=== PATIENT | female | born 1940 | race African-American/Black ===

== ENCOUNTER 2017-06-29 11:34 | Inpatient (IN) ==
[2017-06-29] MEDS ORDERED: NITROGLYCERIN 2% OINT 1 INCH/GM PACK TOP STA (12:16)
[2017-06-29] MEDS ORDERED: FUROSEMIDE 100 MG/10 ML VIAL IV STA (12:16)
[2017-06-29] MEDS ORDERED: ONDANSETRON ODT 4 MG TABLET PO PRN (12:16)
[2017-06-29] MEDS ORDERED: FUROSEMIDE 100 MG/10 ML VIAL ONE (12:22)
[2017-06-29] MEDS ORDERED: NITROGLYCERIN 2% OINT 1 INCH/GM PACK TOP ONE (12:22)
[2017-06-29 12:29] LABS: Basophils % 0.7 % (0.0-0.8); Eosinophils # 0.1 10*3/uL (0.0-0.87); Hematocrit 32.6 VOL% (35.7-47.0); Hemoglobin 11.1 GM/DL (12.0-16.0); Immature Granulocytes % 0.2 %; Immature Granulocytes Absolute 0.01 #; Lymphocytes # 1.3 10*3/uL (1.4-4.0); Mean Corpuscular Hemoglobin 29 PG (27-34); Mean Corpuscular Volume 83.8 FL (87-102); Mean Platelet Volume 10.2 FL (9.6-12.0); Monocytes # 0.4 10*3/uL (0.11-0.8); Monocytes % 9.4 % (1.7-12.7); Neutrophils # 2.2 10*3/uL (1.4-7.4); Neutrophils % 54.7 % (38.7-73.9); Platelet Count 234 T/CUMM (130-400); Red Blood Count 3.89 MC/CUMM (3.8-5.5); Red Cell Distribution Width 15.7 % (9.3-17.3); White Blood Count 4.1 T/CUMM (4-12)
[2017-06-29 12:37] LABS: PT Patient Result 10.6 SECS; Partial Thromboplastin Time 29.4 SECS (0-40)
[2017-06-29 12:58] LABS: Albumin 3.5 G/DL (3.4-5.0); Bilirubin,Total 0.6 MG/DL (0.2-1.0); Calcium 9.2 MG/DL (8.5-10.1); Osmolality,Calculated 286.1 MOS/KG (273-304); Potassium 3.1 MMOL/L (3.5-5.1); Total Protein 7.1 G/DL (6.4-8.3); Troponin I Only 0.028 NG/ML (0.00-0.045)
[2017-06-29] MEDS ORDERED: hydrALAZINE 20 MG/1 ML VIAL IV STA ×2 (13:46→14:51)
[2017-06-29] MEDS ORDERED: hydrALAZINE 20 MG/1 ML VIAL ONE ×2 (13:54→14:50)
[2017-06-29 15:05] LABS: Apearance,Urine CLEAR (Clear); Bacteria,Urine Occasional /HPF (Few); Bilirubin,Urine Negative (Negative); Blood, Urine Negative (Negative); Glucose,Urine (UA) Negative (Negative); Ketones,Urine Negative (Negative); Mucus,Urine Occasional /LPF (Occasional); Nitrite,Urine Negative (Negative); Protein,Urine 100 MG/DL; RBC,Urine <1 /HPF (0-4); Squamous Epithelial Cell,Urine Occasional /HPF (0-10); Urine Color Straw (Yellow); Urine Specific Gravity 1.005 (1.001-1.035); Urine Urobilinogen < 2.0 EU/DL (0.2-1.0); WBC,Urine <1 /HPF (0-6)
[2017-06-29] MEDS ORDERED: INFLUENZA VIRUS VACCINE 0.5 ML SYRINGE IM ONE (16:47)
[2017-06-29] MEDS ORDERED: POTASSIUM CHLORIDE 20 MEQ TABLET PO ONE (17:33)
[2017-06-29] MEDS ORDERED: hydrALAZINE 20 MG/1 ML VIAL IV PRN (18:04)
[2017-06-29] MEDS ORDERED: LABETALOL 20 MG/4 ML SYRINGE IV PRN (18:54)
[2017-06-29] MEDS ORDERED: CARVEDILOL 12.5 MG TABLET PO SCH (21:00)
[2017-06-29] MEDS ORDERED: LISINOPRIL 10 MG TABLET PO SCH (21:00)
[2017-06-29] MEDS: CARVEDILOL 25 MG TABLET PO SCH (21:28)
[2017-06-29] MEDS: LISINOPRIL 20 MG TABLET PO SCH ×2 (21:28→21:33)
[2017-06-29] MEDS: ATORVASTATIN 40 MG TABLET PO SCH (21:29)
[2017-06-30 05:24] LABS: Basophils % 0.7 % (0.0-0.8); Eosinophils # 0.1 10*3/uL (0.0-0.87); Eosinophils % 1.5 % (0.00-10.9); Hematocrit 30.3 VOL% (35.7-47.0); Hemoglobin 10.3 GM/DL (12.0-16.0); Immature Granulocytes % 0.2 %; Immature Granulocytes Absolute 0.01 #; Lymphocytes # 0.6 10*3/uL (1.4-4.0); Lymphocytes % 13.9 % (21.3-54.2); Mean Corpuscular Hemoglobin 29 PG (27-34); Mean Corpuscular Volume 83.7 FL (87-102); Mean Platelet Volume 10.4 FL (9.6-12.0); Monocytes # 0.3 10*3/uL (0.11-0.8); Monocytes % 7.9 % (1.7-12.7); Neutrophils # 3.1 10*3/uL (1.4-7.4); Neutrophils % 75.8 % (38.7-73.9); Platelet Count 212 T/CUMM (130-400); Red Blood Count 3.62 MC/CUMM (3.8-5.5); Red Cell Distribution Width 15.8 % (9.3-17.3)
[2017-06-30 05:52] LABS: Calcium 9.1 MG/DL (8.5-10.1); Magnesium 2.2 MG/DL (1.8-2.4); Potassium 3.8 MMOL/L (3.5-5.1)
[2017-06-30 05:54] LABS: Risk Ratio 4.5; VLDL CHOLESTEROL 17.4 MG/DL
[2017-06-30] MEDS ORDERED: FUROSEMIDE 40 MG/4 ML VIAL IV SCH (08:00)
[2017-06-30] MEDS ORDERED: POTASSIUM CHLORIDE 20 MEQ TABLET PO SCH (09:00)
[2017-06-30] MEDS: CARVEDILOL 25 MG TABLET PO SCH ×2 (09:12→20:13)
[2017-06-30] MEDS: ASPIRIN EC 81 MG TABLET PO SCH (09:13)
[2017-06-30] MEDS: LISINOPRIL 20 MG TABLET PO SCH (09:20)
[2017-06-30 09:33] LABS: Free T4 (Free Thyroxine) 1.12 NG/DL (0.76-1.46); Thyroid Stimulating Hormone 1.47 uIU/ml (0.358-3.74)
[2017-06-30] MEDS: ISOSORBIDE MONONITRATE 30 MG TABLET PO SCH (15:42)
[2017-06-30 15:49] LABS: Troponin I Only 0.022 NG/ML (0.00-0.045)
[2017-06-30 18:43] LABS: Troponin I Only 0.019 NG/ML (0.00-0.045)
[2017-06-30] MEDS: SERTRALINE 50 MG TABLET PO SCH (20:12)
[2017-06-30] MEDS: ATORVASTATIN 40 MG TABLET PO SCH (20:13)
[2017-06-30 21:27] LABS: Troponin I Only 0.016 NG/ML (0.00-0.045)
[2017-07-01 05:08] LABS: Basophils % 0.5 % (0.0-0.8); Eosinophils # 0.1 10*3/uL (0.0-0.87); Eosinophils % 2.7 % (0.00-10.9); Hematocrit 28.2 VOL% (35.7-47.0); Hemoglobin 9.3 GM/DL (12.0-16.0); Lymphocytes % 24.8 % (21.3-54.2); Mean Corpuscular Hemoglobin 28 PG (27-34); Mean Corpuscular Volume 85.5 FL (87-102); Mean Platelet Volume 10.9 FL (9.6-12.0); Monocytes # 0.5 10*3/uL (0.11-0.8); Monocytes % 12.4 % (1.7-12.7); Neutrophils # 2.5 10*3/uL (1.4-7.4); Neutrophils % 59.6 % (38.7-73.9); Platelet Count 198 T/CUMM (130-400); Red Cell Distribution Width 15.4 % (9.3-17.3); White Blood Count 4.1 T/CUMM (4-12)
[2017-07-01 05:33] LABS: Calcium 8.7 MG/DL (8.5-10.1); Magnesium 2.4 MG/DL (1.8-2.4); Osmolality,Calculated 292.1 MOS/KG (273-304); Potassium 4.4 MMOL/L (3.5-5.1)
[2017-07-01 05:50] LABS: Free T4 (Free Thyroxine) 1.06 NG/DL (0.76-1.46); Thyroid Stimulating Hormone 1.01 uIU/ml (0.358-3.74)
[2017-07-01] MEDS ORDERED: LISINOPRIL 5 MG TABLET PO SCH (09:00)
[2017-07-01] MEDS: ISOSORBIDE MONONITRATE 30 MG TABLET PO SCH (09:41)
[2017-07-01] MEDS: ASPIRIN EC 81 MG TABLET PO SCH (09:42)
[2017-07-01] MEDS: CARVEDILOL 25 MG TABLET PO SCH ×2 (09:42→20:47)
[2017-07-01] MEDS: amLODIPine 10 MG TABLET PO SCH (12:25)
[2017-07-01] MEDS: DEXTROSE 5% NACL 0.45% 1,000 ML IV SCH (15:36)
[2017-07-01] MEDS: ATORVASTATIN 40 MG TABLET PO SCH (20:47)
[2017-07-01] MEDS: hydrALAZINE 25 MG TABLET PO SCH (20:47)
[2017-07-01] MEDS: SERTRALINE 50 MG TABLET PO SCH (20:48)
[2017-07-02 06:02] LABS: Basophils % 0.6 % (0.0-0.8); Eosinophils # 0.1 10*3/uL (0.0-0.87); Eosinophils % 3.5 % (0.00-10.9); Hematocrit 26.9 VOL% (35.7-47.0); Hemoglobin 8.9 GM/DL (12.0-16.0); Immature Granulocytes % 0.3 %; Immature Granulocytes Absolute 0.01 #; Lymphocytes % 31.2 % (21.3-54.2); Mean Corpuscular HGB Conc 33.1 GM/DL (32-36); Mean Corpuscular Hemoglobin 28 PG (27-34); Mean Corpuscular Volume 85.1 FL (87-102); Mean Platelet Volume 10.9 FL (9.6-12.0); Monocytes # 0.4 10*3/uL (0.11-0.8); Monocytes % 13.2 % (1.7-12.7); Neutrophils # 1.6 10*3/uL (1.4-7.4); Neutrophils % 51.2 % (38.7-73.9); Platelet Count 176 T/CUMM (130-400); Red Blood Count 3.16 MC/CUMM (3.8-5.5); Red Cell Distribution Width 15.2 % (9.3-17.3); White Blood Count 3.2 T/CUMM (4-12)
[2017-07-02 06:37] LABS: Calcium 8.5 MG/DL (8.5-10.1); Magnesium 2.4 MG/DL (1.8-2.4); Osmolality,Calculated 288.3 MOS/KG (273-304)
[2017-07-02] MEDS: amLODIPine 10 MG TABLET PO SCH (09:04)
[2017-07-02] MEDS: ISOSORBIDE MONONITRATE 30 MG TABLET PO SCH (09:04)
[2017-07-02] MEDS: CARVEDILOL 12.5 MG TABLET PO SCH ×2 (09:05→22:13)
[2017-07-02] MEDS: ASPIRIN EC 81 MG TABLET PO SCH (09:05)
[2017-07-02] MEDS: hydrALAZINE 25 MG TABLET PO SCH ×3 (09:05→22:13)
[2017-07-02] MEDS: NICOTINE 21 MG/24 HR PATCH TRANSDERM SCH (15:24)
[2017-07-02] MEDS: SERTRALINE 50 MG TABLET PO SCH (22:13)
[2017-07-02] MEDS: ATORVASTATIN 40 MG TABLET PO SCH (22:13)
[2017-07-03] MEDS: DEXTROSE 5% NACL 0.45% 1,000 ML IV SCH (01:30)
[2017-07-03 06:19] LABS: Basophils % 0.7 % (0.0-0.8); Eosinophils # 0.1 10*3/uL (0.0-0.87); Eosinophils % 3.7 % (0.00-10.9); Hematocrit 28.3 VOL% (35.7-47.0); Hemoglobin 9.5 GM/DL (12.0-16.0); Immature Granulocytes % 0.4 %; Immature Granulocytes Absolute 0.01 #; Lymphocytes # 0.8 10*3/uL (1.4-4.0); Lymphocytes % 29.2 % (21.3-54.2); Mean Corpuscular HGB Conc 33.6 GM/DL (32-36); Mean Corpuscular Hemoglobin 29 PG (27-34); Monocytes # 0.3 10*3/uL (0.11-0.8); Monocytes % 9.4 % (1.7-12.7); Neutrophils # 1.5 10*3/uL (1.4-7.4); Neutrophils % 56.6 % (38.7-73.9); Platelet Count 185 T/CUMM (130-400); Red Blood Count 3.33 MC/CUMM (3.8-5.5); White Blood Count 2.7 T/CUMM (4-12)
[2017-07-03 06:53] LABS: Calcium 8.8 MG/DL (8.5-10.1); Magnesium 2.4 MG/DL (1.8-2.4); Osmolality,Calculated 285.4 MOS/KG (273-304); Potassium 4.1 MMOL/L (3.5-5.1)
[2017-07-03] MEDS: CARVEDILOL 12.5 MG TABLET PO SCH (08:47)
[2017-07-03] MEDS: amLODIPine 10 MG TABLET PO SCH (08:47)
[2017-07-03] MEDS: ISOSORBIDE MONONITRATE 30 MG TABLET PO SCH (08:47)
[2017-07-03] MEDS: NICOTINE 21 MG/24 HR PATCH TRANSDERM SCH (08:47)
[2017-07-03] MEDS: ASPIRIN EC 81 MG TABLET PO SCH (08:47)
[2017-07-03] MEDS: hydrALAZINE 25 MG TABLET PO SCH (08:48)
[2017-07-03 11:29] VITALS: BP 141/68
== END 2017-07-03 13:15 | disposition home or self-care (01) | DRG 291 ==
LOC: N.ED 11:34 → N.EDINP 14:11 → N.TELEN 15:47
PROVIDERS: ADMIT Hospitalist; ATTEND Hospitalist

== ENCOUNTER 2022-03-03 10:44 | Observation (INO) ==
[2022-03-03] MEDS ORDERED: SODIUM CHLORIDE 0.9% 500 ML IV STA (11:02)
[2022-03-03 11:49] LABS: Basophils % 0.4 % (0.0-0.8); Eosinophils % 1.6 % (0.00-10.9); Hematocrit 23.8 VOL% (35.7-47.0); Hemoglobin 7.8 GM/DL (12.0-16.0); Immature Granulocytes % 0.4 %; Immature Granulocytes Absolute 0.01 #; Lymphocytes # 0.5 10*3/uL (1.4-4.0); Lymphocytes % 17.8 % (21.3-54.2); Mean Corpuscular HGB Conc 32.8 GM/DL (32-36); Mean Corpuscular Volume 86.5 FL (87-102); Mean Platelet Volume 10.8 FL (9.6-12.0); Monocytes # 0.2 10*3/uL (0.11-0.8); Monocytes % 7.8 % (1.7-12.7); Platelet Count 142 T/CUMM (130-400); Red Blood Count 2.75 MC/CUMM (3.8-5.5); Red Cell Distribution Width 16.9 % (9.3-17.3); White Blood Count 2.6 T/CUMM (4-12)
[2022-03-03 11:57] LABS: PT Patient Result 10.9 SECS (10.5-12.0)
[2022-03-03 12:07] LABS: Albumin 3.6 G/DL (3.4-5.0); Bilirubin,Total 0.4 MG/DL (0.20-1.00); Calcium 8.4 MG/DL (8.5-10.1); Osmolality,Calculated 305.8 MOS/KG (273-304); Potassium 4.1 MMOL/L (3.5-5.1); Total Protein 6.4 G/DL (6.4-8.2)
[2022-03-03] MEDS ORDERED: SODIUM CHLORIDE 0.9% 1,000 ML IV PRN (12:55)
[2022-03-03] MEDS ORDERED: ACETAMINOPHEN 325 MG TABLET PO PRN (12:55)
[2022-03-03] MEDS ORDERED: ONDANSETRON 4 MG/2 ML VIAL IV PRN (12:55)
[2022-03-03] MEDS ORDERED: DEXTROSE 10% 250 ML BAG IV PRN (12:55)
[2022-03-03] MEDS ORDERED: NICOTINE 21 MG/24 HR PATCH TRANSDERM PRN (12:55)
[2022-03-03] MEDS ORDERED: DOCUSATE SODIUM 100 MG CAPSULE PO PRN (12:55)
[2022-03-03] MEDS ORDERED: GLUCAGON 1 MG VIAL IM PRN (12:55)
[2022-03-03 14:29] LABS: % Iron Saturation 24.1 % (18-50)
[2022-03-03] MEDS: PANTOPRAZOLE 40 MG TABLET PO SCH (17:23)
[2022-03-03 20:48] LABS: Hematocrit 25.1 VOL% (35.7-47.0); Hemoglobin 8.2 GM/DL (12.0-16.0)
[2022-03-03] MEDS ORDERED: carvediloL 25 MG TABLET PO SCH (21:00)
[2022-03-03] MEDS ORDERED: ATORVASTATIN 80 MG TABLET PO SCH (21:00)
[2022-03-04 06:12] LABS: Basophils % 0.8 % (0.0-0.8); Eosinophils # 0.1 10*3/uL (0.0-0.87); Eosinophils % 1.9 % (0.00-10.9); Hematocrit 23.7 VOL% (35.7-47.0); Hemoglobin 7.7 GM/DL (12.0-16.0); Immature Granulocytes % 0.4 %; Immature Granulocytes Absolute 0.01 #; Lymphocytes # 0.6 10*3/uL (1.4-4.0); Lymphocytes % 24.8 % (21.3-54.2); Mean Corpuscular HGB Conc 32.5 GM/DL (32-36); Mean Corpuscular Volume 87.5 FL (87-102); Mean Platelet Volume 10.8 FL (9.6-12.0); Monocytes # 0.3 10*3/uL (0.11-0.8); Neutrophils % 60.1 % (38.7-73.9); Platelet Count 108 T/CUMM (130-400); Red Blood Count 2.71 MC/CUMM (3.8-5.5); Red Cell Distribution Width 16.6 % (9.3-17.3); White Blood Count 2.6 T/CUMM (4-12)
[2022-03-04 06:23] LABS: Calcium 8.5 MG/DL (8.5-10.1); Potassium 3.5 MMOL/L (3.5-5.1)
[2022-03-04] MEDS ORDERED: carvediloL 25 MG TABLET PO SCH (08:00)
[2022-03-04] MEDS: PANTOPRAZOLE 40 MG TABLET PO SCH (08:43)
[2022-03-04] MEDS ORDERED: SODIUM BICARBONATE 50 MEQ/50 ML VIAL IV ONE (08:58)
[2022-03-04] MEDS ORDERED: MULTIVITAMIN (CENTRUM) TABLET PO SCH (09:00)
[2022-03-04] MEDS ORDERED: ASPIRIN EC 81 MG TABLET PO SCH (09:00)
[2022-03-04] MEDS ORDERED: POTASSIUM CHLORIDE 20 MEQ TABLET PO ONE (09:00)
[2022-03-04] MEDS ORDERED: CYANOCOBALAMIN 500 MCG TABLET PO SCH (09:00)
[2022-03-04] MEDS ORDERED: SODIUM BICARB INJ 50 MEQ in IV BAG 1 EACH IV ONE (09:30)
[2022-03-04 11:35] VITALS: BP 145/43
== END 2022-03-04 12:23 | disposition home or self-care (01) ==
LOC: N.EDINP 10:44 → N.ED 10:44 → SUATTDRO 14:27 → N.3E 17:21
PROVIDERS: ADMIT Family Medicine; ATTEND Family Medicine

== ENCOUNTER 2022-06-16 15:49 | Inpatient (IN) ==
[2022-06-16 16:22] LABS: Basophils % 0.5 % (0.0-0.8); Eosinophils % 0.5 % (0.00-10.9); Hematocrit 29.7 VOL% (35.7-47.0); Hemoglobin 9.7 GM/DL (12.0-16.0); Immature Granulocytes % 0.3 %; Immature Granulocytes Absolute 0.01 #; Lymphocytes # 0.4 10*3/uL (1.4-4.0); Lymphocytes % 9.9 % (21.3-54.2); Mean Corpuscular HGB Conc 32.7 GM/DL (32-36); Mean Corpuscular Volume 84.4 FL (87-102); Monocytes # 0.2 10*3/uL (0.11-0.8); Monocytes % 4.6 % (1.7-12.7); Neutrophils % 84.2 % (38.7-73.9); Platelet Count 231 T/CUMM (130-400); Red Blood Count 3.52 MC/CUMM (3.8-5.5); Red Cell Distribution Width 16.3 % (9.3-17.3)
[2022-06-16] MEDS ORDERED: FUROSEMIDE 40 MG/4 ML VIAL IV STA (16:38)
[2022-06-16] MEDS ORDERED: NITROGLYCERIN 2% OINT 1 INCH/GM PACK TOP STA (16:39)
[2022-06-16 16:48] LABS: Albumin 3.3 G/DL (3.4-5.0); Bilirubin,Total 0.5 MG/DL (0.20-1.00); Calcium 8.9 MG/DL (8.5-10.1); Osmolality,Calculated 318.7 MOS/KG (273-304); Potassium 3.6 MMOL/L (3.5-5.1); Total Protein 6.3 G/DL (6.4-8.2)
[2022-06-16] MEDS ORDERED: DILTIAZEM 25 MG/5 ML VIAL IV ONE (17:34)
[2022-06-16] MEDS ORDERED: ONDANSETRON 4 MG/2 ML VIAL IV STA (17:42)
[2022-06-16] MEDS ORDERED: HYDROmorphone 1 MG/1 ML SYRINGE IV STA (17:42)
[2022-06-16] MEDS ORDERED: ALBUTEROL 2.5 MG/3 ML NEB RESP TX PRN (17:47)
[2022-06-16] MEDS ORDERED: DILTIAZEM 50 MG/10 ML VIAL IV STA (17:47)
[2022-06-16] MEDS ORDERED: ALUMINUM/MAGNES/SIMETH MAX STR 30 ML UDCUP PO PRN (17:47)
[2022-06-16] MEDS ORDERED: CALCIUM CARBONATE CHEW 500 MG TABLET PO PRN (17:47)
[2022-06-16] MEDS ORDERED: hydrALAZINE 20 MG/1 ML VIAL IV PRN (17:47)
[2022-06-16] MEDS ORDERED: LACTULOSE 20 GM/30 ML UDCUP PO PRN (17:47)
[2022-06-16] MEDS ORDERED: NALOXONE 0.4 MG/ML VIAL IV PRN (18:06)
[2022-06-16] MEDS ORDERED: HYDROmorphone 1 MG/1 ML SYRINGE IV PRN (18:06)
[2022-06-16] MEDS: ATORVASTATIN 80 MG TABLET PO SCH (22:45)
[2022-06-16] MEDS: carvediloL 25 MG TABLET PO SCH (22:45)
[2022-06-16] MEDS: SERTRALINE 25 MG TABLET PO SCH (22:45)
[2022-06-17 05:06] LABS: Basophils % 0.3 % (0.0-0.8); Hemoglobin 6.7 GM/DL (12.0-16.0); Immature Granulocytes % 0.3 %; Immature Granulocytes Absolute 0.01 #; Lymphocytes # 0.4 10*3/uL (1.4-4.0); Lymphocytes % 13.2 % (21.3-54.2); Mean Corpuscular HGB Conc 31.9 GM/DL (32-36); Mean Corpuscular Volume 85.7 FL (87-102); Mean Platelet Volume 10.1 FL (9.6-12.0); Monocytes # 0.2 10*3/uL (0.11-0.8); Monocytes % 6.3 % (1.7-12.7); Neutrophils % 79.9 % (38.7-73.9); Platelet Count 155 T/CUMM (130-400); Red Blood Count 2.45 MC/CUMM (3.8-5.5); Red Cell Distribution Width 16.2 % (9.3-17.3)
[2022-06-17 05:35] LABS: Calcium 8.6 MG/DL (8.5-10.1); Osmolality,Calculated 320.7 MOS/KG (273-304); Potassium 3.6 MMOL/L (3.5-5.1); Risk Ratio 4.53; Thyroid Stimulating Hormone 2.44 uIU/ml (0.358-3.74); VLDL Cholesterol 22.2 MG/DL
[2022-06-17 06:13] LABS: Hepatitis B Core IgM Quant 0.13 Index; Hepatitis B Surface Ag Quant < 0.10 Index; Hepatitis B Surface Ag Result Non-Reactive (NonReactive); Hepatitis C Virus Ab Quant 0.09 Index; Hepatitis C Virus Ab Result Non-Reactive (NonReactive)
[2022-06-17] MEDS ORDERED: SODIUM CHLORIDE 0.9% 1,000 ML IV PRN (07:48)
[2022-06-17] MEDS: FUROSEMIDE 40 MG/4 ML VIAL IV SCH ×2 (12:06→16:19)
[2022-06-17] MEDS: carvediloL 25 MG TABLET PO SCH (12:06)
[2022-06-17] MEDS ORDERED: HEPARIN 10,000 UNIT/10 ML VIAL IV SCH (14:30)
[2022-06-17] MEDS: ACETAMINOPHEN 325 MG TABLET PO PRN (17:30)
[2022-06-17] MEDS: ATORVASTATIN 80 MG TABLET PO SCH (22:59)
[2022-06-17] MEDS: carvediloL 6.25 MG TABLET PO SCH (22:59)
[2022-06-17] MEDS: SERTRALINE 25 MG TABLET PO SCH (22:59)
[2022-06-18 05:19] LABS: Basophils % 0.4 % (0.0-0.8); Eosinophils # 0.1 10*3/uL (0.0-0.87); Eosinophils % 0.9 % (0.00-10.9); Hemoglobin 8.1 GM/DL (12.0-16.0); Immature Granulocytes % 0.6 %; Immature Granulocytes Absolute 0.03 #; Lymphocytes # 0.5 10*3/uL (1.4-4.0); Lymphocytes % 9.1 % (21.3-54.2); Mean Corpuscular HGB Conc 33.8 GM/DL (32-36); Mean Corpuscular Volume 83.6 FL (87-102); Mean Platelet Volume 10.6 FL (9.6-12.0); Monocytes # 0.4 10*3/uL (0.11-0.8); Monocytes % 7.2 % (1.7-12.7); Neutrophils % 81.8 % (38.7-73.9); Platelet Count 177 T/CUMM (130-400); Red Blood Count 2.87 MC/CUMM (3.8-5.5); Red Cell Distribution Width 15.8 % (9.3-17.3); White Blood Count 5.4 T/CUMM (4-12)
[2022-06-18 05:27] LABS: Calcium 8.4 MG/DL (8.5-10.1); Potassium 3.3 MMOL/L (3.5-5.1)
[2022-06-18] MEDS ORDERED: POTASSIUM CHLORIDE 20 MEQ TABLET PO ONE (07:55)
[2022-06-18] MEDS: ONDANSETRON 4 MG/2 ML VIAL IV PRN (08:16)
[2022-06-18] MEDS: FUROSEMIDE 40 MG/4 ML VIAL IV SCH (08:26)
[2022-06-18] MEDS ORDERED: MAGNESIUM HYDROXIDE SUSP 30 ML UDCUP PO ONE (13:00)
[2022-06-18] MEDS: DOCUSATE SODIUM 100 MG CAPSULE PO PRN (13:46)
[2022-06-18] MEDS: ASPIRIN EC 81 MG TABLET PO SCH (13:47)
[2022-06-18] MEDS: carvediloL 6.25 MG TABLET PO SCH ×2 (13:47→20:32)
[2022-06-18] MEDS: FUROSEMIDE 40 MG TABLET PO SCH (17:05)
[2022-06-18] MEDS: ACETAMINOPHEN 325 MG TABLET PO PRN (19:23)
[2022-06-18] MEDS: SERTRALINE 25 MG TABLET PO SCH (20:32)
[2022-06-18] MEDS: ATORVASTATIN 80 MG TABLET PO SCH (20:32)
[2022-06-19] MEDS: ASPIRIN EC 81 MG TABLET PO SCH (08:09)
[2022-06-19] MEDS: carvediloL 6.25 MG TABLET PO SCH ×3 (08:09→23:41)
[2022-06-19] MEDS: FUROSEMIDE 40 MG TABLET PO SCH ×2 (08:10→15:57)
[2022-06-19 10:16] LABS: Basophils % 0.4 % (0.0-0.8); Eosinophils % 0.6 % (0.00-10.9); Hematocrit 26.4 VOL% (35.7-47.0); Hemoglobin 8.6 GM/DL (12.0-16.0); Immature Granulocytes % 0.2 %; Immature Granulocytes Absolute 0.01 #; Lymphocytes # 0.4 10*3/uL (1.4-4.0); Lymphocytes % 7.8 % (21.3-54.2); Mean Corpuscular HGB Conc 32.6 GM/DL (32-36); Mean Corpuscular Volume 85.2 FL (87-102); Mean Platelet Volume 10.7 FL (9.6-12.0); Monocytes # 0.5 10*3/uL (0.11-0.8); Monocytes % 10.2 % (1.7-12.7); Neutrophils % 80.8 % (38.7-73.9); Platelet Count 172 T/CUMM (130-400); White Blood Count 5.1 T/CUMM (4-12)
[2022-06-19 10:46] LABS: Albumin 2.8 G/DL (3.4-5.0); Bilirubin,Total 0.4 MG/DL (0.20-1.00); Calcium 8.4 MG/DL (8.5-10.1); Osmolality,Calculated 280.4 MOS/KG (273-304); Potassium 3.2 MMOL/L (3.5-5.1); Total Protein 5.8 G/DL (6.4-8.2)
[2022-06-19 11:01] LABS: Calcium 8.2 MG/DL (8.5-10.1); Osmolality,Calculated 282.3 MOS/KG (273-304); Potassium 3.2 MMOL/L (3.5-5.1)
[2022-06-19] MEDS: ONDANSETRON 4 MG/2 ML VIAL IV PRN ×2 (12:13→20:45)
[2022-06-19] MEDS ORDERED: POTASSIUM CHLORIDE 20 MEQ TABLET PO ONE (12:37)
[2022-06-19] MEDS: cefTRIAXone 1,000 MG in SODIUM CHLORIDE 0.9% 100 ML IV SCH (13:06)
[2022-06-19] MEDS: ATORVASTATIN 80 MG TABLET PO SCH ×2 (20:41→23:41)
[2022-06-19] MEDS: SERTRALINE 25 MG TABLET PO SCH ×2 (20:42→23:41)
[2022-06-20 04:18] LABS: Basophils % 0.7 % (0.0-0.8); Eosinophils # 0.1 10*3/uL (0.0-0.87); Eosinophils % 1.6 % (0.00-10.9); Hematocrit 25.8 VOL% (35.7-47.0); Hemoglobin 8.3 GM/DL (12.0-16.0); Immature Granulocytes % 0.2 %; Immature Granulocytes Absolute 0.01 #; Lymphocytes # 0.6 10*3/uL (1.4-4.0); Lymphocytes % 14.4 % (21.3-54.2); Mean Corpuscular HGB Conc 32.2 GM/DL (32-36); Mean Corpuscular Volume 86.9 FL (87-102); Mean Platelet Volume 10.9 FL (9.6-12.0); Monocytes # 0.5 10*3/uL (0.11-0.8); Monocytes % 12.3 % (1.7-12.7); Neutrophils % 70.8 % (38.7-73.9); Platelet Count 166 T/CUMM (130-400); Red Blood Count 2.97 MC/CUMM (3.8-5.5); Red Cell Distribution Width 16.2 % (9.3-17.3); White Blood Count 4.3 T/CUMM (4-12)
[2022-06-20 05:03] LABS: Calcium 8.2 MG/DL (8.5-10.1); Osmolality,Calculated 282.3 MOS/KG (273-304); Potassium 3.8 MMOL/L (3.5-5.1)
[2022-06-20 05:06] LABS: Albumin 2.8 G/DL (3.4-5.0); Bilirubin,Total 0.4 MG/DL (0.20-1.00); Calcium 8.3 MG/DL (8.5-10.1); Osmolality,Calculated 288.8 MOS/KG (273-304); Total Protein 5.2 G/DL (6.4-8.2)
[2022-06-20] MEDS: DOCUSATE SODIUM 100 MG CAPSULE PO PRN (09:18)
[2022-06-20] MEDS: ASPIRIN EC 81 MG TABLET PO SCH (09:19)
[2022-06-20] MEDS: FUROSEMIDE 40 MG TABLET PO SCH ×2 (09:20→15:53)
[2022-06-20] MEDS: carvediloL 6.25 MG TABLET PO SCH ×2 (09:21→22:00)
[2022-06-20] MEDS: cefTRIAXone 1,000 MG in SODIUM CHLORIDE 0.9% 100 ML IV SCH (10:54)
[2022-06-20] MEDS: ACETAMINOPHEN 325 MG TABLET PO PRN (15:53)
[2022-06-20] MEDS: SERTRALINE 25 MG TABLET PO SCH (22:00)
[2022-06-20] MEDS: ATORVASTATIN 80 MG TABLET PO SCH (22:00)
[2022-06-21 04:55] LABS: Basophils % 0.5 % (0.0-0.8); Eosinophils # 0.1 10*3/uL (0.0-0.87); Eosinophils % 3.2 % (0.00-10.9); Hematocrit 28.4 VOL% (35.7-47.0); Hemoglobin 8.8 GM/DL (12.0-16.0); Immature Granulocytes % 0.5 %; Immature Granulocytes Absolute 0.02 #; Lymphocytes # 0.5 10*3/uL (1.4-4.0); Lymphocytes % 13.7 % (21.3-54.2); Mean Corpuscular Volume 88.2 FL (87-102); Mean Platelet Volume 10.8 FL (9.6-12.0); Monocytes # 0.4 10*3/uL (0.11-0.8); Monocytes % 11.3 % (1.7-12.7); Neutrophils % 70.8 % (38.7-73.9); Platelet Count 169 T/CUMM (130-400); Red Blood Count 3.22 MC/CUMM (3.8-5.5); Red Cell Distribution Width 16.2 % (9.3-17.3); White Blood Count 3.8 T/CUMM (4-12)
[2022-06-21 05:19] LABS: Calcium 8.3 MG/DL (8.5-10.1); Potassium 3.9 MMOL/L (3.5-5.1)
[2022-06-21 07:50] LABS: Eosinophils 1 % (0-10); Hypochromia Slight; Lymphocytes 13 % (20-55); Microcytosis Slight; Platelet Estimate Adequate; Total Cells Counted 100
[2022-06-21] MEDS: FUROSEMIDE 40 MG TABLET PO SCH ×2 (09:55→17:10)
[2022-06-21] MEDS: ASPIRIN EC 81 MG TABLET PO SCH (14:15)
[2022-06-21] MEDS: carvediloL 6.25 MG TABLET PO SCH ×2 (14:15→20:50)
[2022-06-21] MEDS: cefTRIAXone 1,000 MG in SODIUM CHLORIDE 0.9% 100 ML IV SCH (14:16)
[2022-06-21] MEDS: SERTRALINE 25 MG TABLET PO SCH (20:50)
[2022-06-21] MEDS: ATORVASTATIN 80 MG TABLET PO SCH (20:50)
[2022-06-22 05:03] LABS: Basophils % 0.8 % (0.0-0.8); Eosinophils # 0.1 10*3/uL (0.0-0.87); Eosinophils % 2.9 % (0.00-10.9); Hematocrit 28.7 VOL% (35.7-47.0); Hemoglobin 9.1 GM/DL (12.0-16.0); Lymphocytes # 0.5 10*3/uL (1.4-4.0); Lymphocytes % 14.5 % (21.3-54.2); Mean Corpuscular HGB Conc 31.7 GM/DL (32-36); Mean Corpuscular Volume 87.5 FL (87-102); Mean Platelet Volume 10.6 FL (9.6-12.0); Monocytes # 0.4 10*3/uL (0.11-0.8); Monocytes % 11.8 % (1.7-12.7); Platelet Count 167 T/CUMM (130-400); Red Blood Count 3.28 MC/CUMM (3.8-5.5); White Blood Count 3.7 T/CUMM (4-12)
[2022-06-22 05:40] LABS: Calcium 8.7 MG/DL (8.5-10.1); Osmolality,Calculated 284.4 MOS/KG (273-304); Potassium 3.7 MMOL/L (3.5-5.1)
[2022-06-22] MEDS ORDERED: BUPIVACAINE MPF 0.25% 10 ML VIAL ONE (06:27)
[2022-06-22] MEDS ORDERED: LIDOCAINE MPF 1% /EPI 30 ML VIAL ONE (06:27)
[2022-06-22] MEDS ORDERED: HEPARIN 5,000 UNIT/1 ML VIAL ONE (06:27)
[2022-06-22] MEDS ORDERED: fentaNYL 100 MCG/2 ML VIAL ONE (06:33)
[2022-06-22] MEDS ORDERED: KETAMINE 500 MG/10 ML VIAL ONE (06:33)
[2022-06-22] MEDS ORDERED: MIDAZOLAM 2 MG/2 ML VIAL ONE (06:33)
[2022-06-22] MEDS: FUROSEMIDE 40 MG TABLET PO SCH ×2 (09:17→15:57)
[2022-06-22] MEDS: carvediloL 6.25 MG TABLET PO SCH ×2 (09:17→20:38)
[2022-06-22] MEDS: ASPIRIN EC 81 MG TABLET PO SCH (09:17)
[2022-06-22] MEDS: cefTRIAXone 1,000 MG in SODIUM CHLORIDE 0.9% 100 ML IV SCH (10:14)
[2022-06-22] MEDS: ONDANSETRON 4 MG/2 ML VIAL IV PRN (17:25)
[2022-06-22] MEDS: ATORVASTATIN 80 MG TABLET PO SCH (20:38)
[2022-06-22] MEDS: SERTRALINE 25 MG TABLET PO SCH (20:38)
[2022-06-22] MEDS: ACETAMINOPHEN 325 MG TABLET PO PRN (20:39)
[2022-06-23 04:48] LABS: Eosinophils # 0.2 10*3/uL (0.0-0.87); Eosinophils % 3.9 % (0.00-10.9); Hematocrit 27.5 VOL% (35.7-47.0); Hemoglobin 8.6 GM/DL (12.0-16.0); Immature Granulocytes % 0.5 %; Immature Granulocytes Absolute 0.02 #; Lymphocytes # 0.6 10*3/uL (1.4-4.0); Lymphocytes % 16.3 % (21.3-54.2); Mean Corpuscular HGB Conc 31.3 GM/DL (32-36); Mean Corpuscular Volume 88.4 FL (87-102); Mean Platelet Volume 10.5 FL (9.6-12.0); Monocytes # 0.5 10*3/uL (0.11-0.8); Monocytes % 13.6 % (1.7-12.7); Neutrophils % 64.7 % (38.7-73.9); Platelet Count 149 T/CUMM (130-400); Red Blood Count 3.11 MC/CUMM (3.8-5.5); White Blood Count 3.8 T/CUMM (4-12)
[2022-06-23 05:07] LABS: Calcium 8.6 MG/DL (8.5-10.1); Osmolality,Calculated 287.3 MOS/KG (273-304); Potassium 3.6 MMOL/L (3.5-5.1)
[2022-06-23] MEDS: ASPIRIN EC 81 MG TABLET PO SCH (09:40)
[2022-06-23] MEDS: FUROSEMIDE 40 MG TABLET PO SCH (09:41)
[2022-06-23] MEDS: carvediloL 6.25 MG TABLET PO SCH (13:30)
[2022-06-23 13:34] VITALS: BP 180/77
[2022-06-23] MEDS: cefTRIAXone 1,000 MG in SODIUM CHLORIDE 0.9% 100 ML IV SCH (16:37)
== END 2022-06-23 13:50 | disposition home health service (06) | DRG 291 ==
LOC: N.ED 15:49 → N.EDINP 17:42 → SUATTDRO 17:42 → N.5E 19:00 → N.TELES 19:19
PROVIDERS: ADMIT Family Medicine; ATTEND Internal Medicine

== ENCOUNTER 2022-07-15 14:38 | Inpatient (IN) ==
[2022-07-15] MEDS ORDERED: ASPIRIN 325 MG TABLET PO STA (15:20)
[2022-07-15] MEDS ORDERED: DILTIAZEM 50 MG/10 ML VIAL IV STA (15:20)
[2022-07-15] MEDS: DILTIAZEM INJ 100 MG in SODIUM CHLORIDE 0.9% 100 ML IV SCH ×2 (15:38→23:42)
[2022-07-15 15:42] LABS: Basophils % 0.3 % (0.0-0.8); Hemoglobin 8.7 GM/DL (12.0-16.0); Immature Granulocytes % 1.7 %; Immature Granulocytes Absolute 0.13 #; Lymphocytes # 0.8 10*3/uL (1.4-4.0); Lymphocytes % 10.5 % (21.3-54.2); Mean Corpuscular HGB Conc 32.2 GM/DL (32-36); Mean Corpuscular Volume 87.1 FL (87-102); Mean Platelet Volume 10.7 FL (9.6-12.0); Monocytes # 0.5 10*3/uL (0.11-0.8); Monocytes % 6.3 % (1.7-12.7); Neutrophils % 81.2 % (38.7-73.9); Platelet Count 172 T/CUMM (130-400); Red Cell Distribution Width 17.9 % (9.3-17.3); White Blood Count 7.5 T/CUMM (4-12)
[2022-07-15 16:03] LABS: Albumin 3.4 G/DL (3.4-5.0); Bilirubin,Total 0.5 MG/DL (0.20-1.00); Calcium 8.7 MG/DL (8.5-10.1); Osmolality,Calculated 285.7 MOS/KG (273-304); Potassium 2.6 MMOL/L (3.5-5.1); Total Protein 6.9 G/DL (6.4-8.2)
[2022-07-15 16:04] LABS: INR 0.9; PT Patient Result 10.2 SECS (10.1-12.1)
[2022-07-15 16:06] LABS: Band Neutrophils 3 % (0-10); Lymphocytes 5 % (20-55); Total Cells Counted 100
[2022-07-15] MEDS ORDERED: POTASSIUM CHLORIDE 20 MEQ TABLET PO STA (16:06)
[2022-07-15 16:07] LABS: Platelet Estimate Adequate
[2022-07-15] MEDS ORDERED: VANCOMYCIN INJ 1,000 MG in SODIUM CHLORIDE 0.9% 250 ML IV STA (16:17)
[2022-07-15] MEDS ORDERED: PIPERACILLIN/TAZOBACTAM 3,375 MG in SODIUM CHLORIDE 0.9% 100 ML IV STA (16:17)
[2022-07-15] MEDS ORDERED: hydrALAZINE 20 MG/1 ML VIAL IV PRN (17:23)
[2022-07-15] MEDS ORDERED: DOCUSATE SODIUM 100 MG CAPSULE PO PRN (17:23)
[2022-07-15] MEDS ORDERED: ONDANSETRON 4 MG/2 ML VIAL IV PRN (17:23)
[2022-07-15] MEDS ORDERED: ALBUTEROL 2.5 MG/3 ML NEB RESP TX PRN (17:56)
[2022-07-15 18:00] LABS: Thyroid Stimulating Hormone 0.363 uIU/ml (0.358-3.74)
[2022-07-15] MEDS ORDERED: HEPARIN 5,000 UNIT/1 ML VIAL SUBCUT SCH (21:00)
[2022-07-15] MEDS ORDERED: APIXABAN 2.5 MG TABLET PO SCH (21:00)
[2022-07-15] MEDS ORDERED: carvediloL 6.25 MG TABLET PO SCH (21:00)
[2022-07-15] MEDS: SERTRALINE 25 MG TABLET PO SCH (21:57)
[2022-07-15] MEDS: ATORVASTATIN 80 MG TABLET PO SCH (21:57)
[2022-07-16 05:17] LABS: Calcium 7.7 MG/DL (8.5-10.1); Osmolality,Calculated 295.5 MOS/KG (273-304); Potassium 2.6 MMOL/L (3.5-5.1)
[2022-07-16] MEDS ORDERED: SODIUM CHLORIDE 0.9% 250 ML IV ONE (05:30)
[2022-07-16 05:41] LABS: Basophils % 0.2 % (0.0-0.8); Hemoglobin 6.6 GM/DL (12.0-16.0); Immature Granulocytes % 0.9 %; Immature Granulocytes Absolute 0.05 #; Lymphocytes # 0.5 10*3/uL (1.4-4.0); Lymphocytes % 9.1 % (21.3-54.2); Mean Corpuscular Volume 87.3 FL (87-102); Mean Platelet Volume 10.3 FL (9.6-12.0); Monocytes # 0.3 10*3/uL (0.11-0.8); Monocytes % 5.7 % (1.7-12.7); Neutrophils % 84.1 % (38.7-73.9); Platelet Count 104 T/CUMM (130-400); Red Blood Count 2.29 MC/CUMM (3.8-5.5); Red Cell Distribution Width 17.5 % (9.3-17.3); White Blood Count 5.6 T/CUMM (4-12)
[2022-07-16 06:03] LABS: Hypochromia Slight; Lymphocytes 7 % (20-55); Microcytosis Slight; Total Cells Counted 100
[2022-07-16 06:04] LABS: Misc Morphology F
[2022-07-16] MEDS ORDERED: SODIUM CHLORIDE 0.9% 1,000 ML IV PRN (06:52)
[2022-07-16] MEDS ORDERED: POTASSIUM CHLORIDE 20 MEQ TABLET PO ONE (06:57)
[2022-07-16] MEDS ORDERED: NOREPINEPHRINE 16 MG in SODIUM CHLORIDE 0.9% 234 ML IV PRN (08:00)
[2022-07-16] MEDS ORDERED: PIPERACILLIN/TAZOBACTAM 3,375 MG in SODIUM CHLORIDE 0.9% 100 ML IV ONE (08:00)
[2022-07-16 08:48] LABS: Arterial Bicarbonate iSTAT 26.4 MMOL/L (20-26); Arterial pH iSTAT 7.468 (7.35-7.45)
[2022-07-16 08:59] LABS: Basophils % 0.1 % (0.0-0.8); Hematocrit 21.3 VOL% (35.7-47.0); Hemoglobin 6.7 GM/DL (12.0-16.0); Immature Granulocytes % 0.4 %; Immature Granulocytes Absolute 0.03 #; Lymphocytes # 0.6 10*3/uL (1.4-4.0); Mean Corpuscular HGB Conc 31.5 GM/DL (32-36); Mean Corpuscular Volume 89.5 FL (87-102); Mean Platelet Volume 11.3 FL (9.6-12.0); Monocytes # 0.4 10*3/uL (0.11-0.8); Neutrophils % 84.5 % (38.7-73.9); Platelet Count 129 T/CUMM (130-400); Red Blood Count 2.38 MC/CUMM (3.8-5.5); White Blood Count 6.9 T/CUMM (4-12)
[2022-07-16] MEDS ORDERED: PANTOPRAZOLE 40 MG TABLET PO SCH (09:00)
[2022-07-16 09:28] LABS: Folate 5.36 NG/ML (5.38-24.0); Vitamin B12 > 2000 PG/ML (211-911)
[2022-07-16 09:36] LABS: % Iron Saturation 15.8 % (18-50); Ferritin 2265.2 ng/mL (8-252)
[2022-07-16 09:57] LABS: Lymphocytes 9 % (20-55); Total Cells Counted 100
[2022-07-16 09:58] LABS: Hypochromia 1+; Microcytosis Slight
[2022-07-16] MEDS: AZITHROMYCIN INJ 500 MG in SODIUM CHLORIDE 0.9% 250 ML IV SCH (10:44)
[2022-07-16] MEDS: ASCORBIC ACID 500 MG TABLET PO SCH ×2 (10:45→21:02)
[2022-07-16] MEDS: methylPREDNISolone SOD SUC 125 MG/2 ML VIAL IV SCH ×3 (10:45→23:57)
[2022-07-16] MEDS: PANTOPRAZOLE 40 MG VIAL IV SCH ×2 (10:45→21:02)
[2022-07-16] MEDS: ASPIRIN EC 81 MG TABLET PO SCH (10:45)
[2022-07-16 11:46] LABS: Bilirubin,Urine Small mg/dL (Negative); Blood, Urine Trace mg/dL (Negative); Glucose,Urine (UA) Negative (Negative); Ketones,Urine Trace mg/dL (Negative); Nitrite,Urine Negative (Negative); Protein,Urine >=300 mg/dL (Negative); Urine Appearance Cloudy (Clear); Urine Color Yellow (Yellow); Urine Specific Gravity >= 1.030 (1.001-1.035); Urine Urobilinogen 0.2 eU/dL (<2.0)
[2022-07-16 11:48] LABS: Amorphous Crystals,Urine Occasional /HPF (Few); Squamous Epithelial Cell,Urine Many /HPF (0-10)
[2022-07-16] MEDS: ACETAMINOPHEN 325 MG TABLET PO PRN (12:26)
[2022-07-16] MEDS: cefTRIAXone 1,000 MG in SODIUM CHLORIDE 0.9% 100 ML IV SCH (16:37)
[2022-07-16] MEDS ORDERED: VANCOMYCIN INJ 500 MG in SODIUM CHLORIDE 0.9% 100 ML IV PRN (17:00)
[2022-07-16 17:38] LABS: Hematocrit 26.2 VOL% (35.7-47.0); Hemoglobin 8.5 GM/DL (12.0-16.0)
[2022-07-16 19:05] LABS: Calcium 8.1 MG/DL (8.5-10.1); Osmolality,Calculated 301.1 MOS/KG (273-304); Potassium 3.1 MMOL/L (3.5-5.1)
[2022-07-16] MEDS: FOLIC ACID 1 MG TABLET PO SCH (21:02)
[2022-07-16] MEDS: ATORVASTATIN 80 MG TABLET PO SCH (21:02)
[2022-07-16] MEDS: SERTRALINE 25 MG TABLET PO SCH (21:02)
[2022-07-17] MEDS: POTASSIUM CHLORIDE RIDER 10 MEQ/100 ML PREMIX IV SCH ×2 (02:26→03:27)
[2022-07-17 05:15] LABS: Hematocrit 27.8 VOL% (35.7-47.0); Immature Granulocytes % 0.2 %; Immature Granulocytes Absolute 0.01 #; Lymphocytes # 0.4 10*3/uL (1.4-4.0); Lymphocytes % 9.9 % (21.3-54.2); Mean Corpuscular HGB Conc 32.4 GM/DL (32-36); Mean Corpuscular Volume 86.3 FL (87-102); Mean Platelet Volume 11.3 FL (9.6-12.0); Monocytes # 0.1 10*3/uL (0.11-0.8); Monocytes % 3.2 % (1.7-12.7); Neutrophils % 86.7 % (38.7-73.9); Platelet Count 145 T/CUMM (130-400); Red Blood Count 3.22 MC/CUMM (3.8-5.5); Red Cell Distribution Width 17.1 % (9.3-17.3); White Blood Count 4.1 T/CUMM (4-12)
[2022-07-17 05:37] LABS: Hypochromia Slight; Lymphocytes 9 % (20-55); Microcytosis Slight; Total Cells Counted 100
[2022-07-17 05:38] LABS: Ovalocytes Slight; Platelet Estimate Adequate
[2022-07-17 05:48] LABS: Calcium 8.3 MG/DL (8.5-10.1); Osmolality,Calculated 300.3 MOS/KG (273-304); Potassium 3.1 MMOL/L (3.5-5.1)
[2022-07-17] MEDS: ASPIRIN EC 81 MG TABLET PO SCH (08:45)
[2022-07-17] MEDS: ASCORBIC ACID 500 MG TABLET PO SCH ×2 (08:45→20:14)
[2022-07-17] MEDS: FOLIC ACID 1 MG TABLET PO SCH ×2 (08:45→20:14)
[2022-07-17] MEDS: methylPREDNISolone SOD SUC 125 MG/2 ML VIAL IV SCH ×3 (08:46→23:44)
[2022-07-17] MEDS: PANTOPRAZOLE 40 MG VIAL IV SCH ×2 (08:46→20:13)
[2022-07-17] MEDS: AZITHROMYCIN INJ 500 MG in SODIUM CHLORIDE 0.9% 250 ML IV SCH (08:48)
[2022-07-17] MEDS ORDERED: HEPARIN 10,000 UNIT/10 ML VIAL IV SCH (13:45)
[2022-07-17] MEDS: cefTRIAXone 1,000 MG in SODIUM CHLORIDE 0.9% 100 ML IV SCH (16:52)
[2022-07-17] MEDS ORDERED: VANCOMYCIN INJ 500 MG in SODIUM CHLORIDE 0.9% 100 ML IV ONE (17:00)
[2022-07-17] MEDS ORDERED: POTASSIUM CHLORIDE 20 MEQ TABLET PO ONE (18:17)
[2022-07-17] MEDS: ACETAMINOPHEN 325 MG TABLET PO PRN (19:25)
[2022-07-17] MEDS ORDERED: traMADol 50 MG TABLET PO PRN (19:38)
[2022-07-17] MEDS: SERTRALINE 25 MG TABLET PO SCH (20:14)
[2022-07-17] MEDS: ATORVASTATIN 80 MG TABLET PO SCH (20:14)
[2022-07-17] MEDS ORDERED: ALUM/MAG/SIMETH/LIDO VISC 1:1 30 ML BOTTLE PO ONE (21:00)
[2022-07-17] MEDS ORDERED: MORPHINE 2 MG/1 ML SYRINGE IV ONE (23:50)
[2022-07-18 06:36] LABS: Hematocrit 30.9 VOL% (35.7-47.0); Hemoglobin 9.7 GM/DL (12.0-16.0); Immature Granulocytes % 0.8 %; Immature Granulocytes Absolute 0.05 #; Lymphocytes # 0.3 10*3/uL (1.4-4.0); Lymphocytes % 5.4 % (21.3-54.2); Mean Corpuscular HGB Conc 31.4 GM/DL (32-36); Mean Corpuscular Volume 88.5 FL (87-102); Mean Platelet Volume 11.2 FL (9.6-12.0); Monocytes # 0.3 10*3/uL (0.11-0.8); Monocytes % 4.7 % (1.7-12.7); Neutrophils % 89.1 % (38.7-73.9); Platelet Count 183 T/CUMM (130-400); Red Blood Count 3.49 MC/CUMM (3.8-5.5); Red Cell Distribution Width 17.5 % (9.3-17.3); White Blood Count 6.1 T/CUMM (4-12)
[2022-07-18 07:10] LABS: Calcium 9.1 MG/DL (8.5-10.1); Osmolality,Calculated 293.1 MOS/KG (273-304); Potassium 4.4 MMOL/L (3.5-5.1)
[2022-07-18] MEDS: ASCORBIC ACID 500 MG TABLET PO SCH ×2 (08:06→21:40)
[2022-07-18] MEDS: PANTOPRAZOLE 40 MG VIAL IV SCH ×2 (08:06→21:41)
[2022-07-18] MEDS: FOLIC ACID 1 MG TABLET PO SCH ×2 (08:06→21:40)
[2022-07-18] MEDS: ASPIRIN EC 81 MG TABLET PO SCH (08:06)
[2022-07-18] MEDS: methylPREDNISolone SOD SUC 125 MG/2 ML VIAL IV SCH (08:07)
[2022-07-18] MEDS: AZITHROMYCIN INJ 500 MG in SODIUM CHLORIDE 0.9% 250 ML IV SCH (08:48)
[2022-07-18] MEDS: amLODIPine 5 MG TABLET PO SCH (13:32)
[2022-07-18] MEDS: cefTRIAXone 1,000 MG in SODIUM CHLORIDE 0.9% 100 ML IV SCH (17:30)
[2022-07-18] MEDS: ATORVASTATIN 80 MG TABLET PO SCH (21:40)
[2022-07-18] MEDS: SERTRALINE 25 MG TABLET PO SCH (21:40)
[2022-07-19 05:12] LABS: Basophils % 0.1 % (0.0-0.8); Hematocrit 28.9 VOL% (35.7-47.0); Hemoglobin 9.3 GM/DL (12.0-16.0); Immature Granulocytes % 1.2 %; Lymphocytes # 0.5 10*3/uL (1.4-4.0); Lymphocytes % 6.1 % (21.3-54.2); Mean Corpuscular HGB Conc 32.2 GM/DL (32-36); Mean Corpuscular Volume 88.9 FL (87-102); Mean Platelet Volume 10.7 FL (9.6-12.0); Monocytes # 0.6 10*3/uL (0.11-0.8); Monocytes % 6.9 % (1.7-12.7); Neutrophils % 85.7 % (38.7-73.9); Platelet Count 185 T/CUMM (130-400); Red Blood Count 3.25 MC/CUMM (3.8-5.5); White Blood Count 8.7 T/CUMM (4-12)
[2022-07-19 05:41] LABS: Calcium 8.2 MG/DL (8.5-10.1); Osmolality,Calculated 300.3 MOS/KG (273-304)
[2022-07-19] MEDS: PANTOPRAZOLE 40 MG VIAL IV SCH ×3 (09:03→21:33)
[2022-07-19] MEDS: ASCORBIC ACID 500 MG TABLET PO SCH ×2 (09:03→21:32)
[2022-07-19] MEDS: ASPIRIN EC 81 MG TABLET PO SCH (09:03)
[2022-07-19] MEDS: CYANOCOBALAMIN 500 MCG TABLET PO SCH (09:04)
[2022-07-19] MEDS: FOLIC ACID 1 MG TABLET PO SCH ×2 (09:04→21:32)
[2022-07-19] MEDS: amLODIPine 5 MG TABLET PO SCH (09:04)
[2022-07-19] MEDS: AZITHROMYCIN INJ 500 MG in SODIUM CHLORIDE 0.9% 250 ML IV SCH (09:04)
[2022-07-19] MEDS ORDERED: amLODIPine 5 MG TABLET PO ONE (12:35)
[2022-07-19] MEDS ORDERED: hydrALAZINE 20 MG/1 ML VIAL IV PRN (12:36)
[2022-07-19] MEDS: cefTRIAXone 1,000 MG in SODIUM CHLORIDE 0.9% 100 ML IV SCH (16:10)
[2022-07-19] MEDS: ATORVASTATIN 80 MG TABLET PO SCH (21:33)
[2022-07-20 05:44] LABS: Hematocrit 29.6 VOL% (35.7-47.0); Hemoglobin 9.3 GM/DL (12.0-16.0); Immature Granulocytes % 1.3 %; Immature Granulocytes Absolute 0.08 #; Lymphocytes # 0.4 10*3/uL (1.4-4.0); Lymphocytes % 6.5 % (21.3-54.2); Mean Corpuscular HGB Conc 31.4 GM/DL (32-36); Mean Corpuscular Volume 88.1 FL (87-102); Mean Platelet Volume 10.9 FL (9.6-12.0); Monocytes # 0.5 10*3/uL (0.11-0.8); Monocytes % 7.6 % (1.7-12.7); Neutrophils % 84.6 % (38.7-73.9); Platelet Count 178 T/CUMM (130-400); Red Blood Count 3.36 MC/CUMM (3.8-5.5); Red Cell Distribution Width 16.8 % (9.3-17.3); White Blood Count 6.3 T/CUMM (4-12)
[2022-07-20 05:59] LABS: Calcium 8.2 MG/DL (8.5-10.1); Osmolality,Calculated 302.4 MOS/KG (273-304); Potassium 3.6 MMOL/L (3.5-5.1)
[2022-07-20 08:27] VITALS: BP 191/66
[2022-07-20] MEDS ORDERED: amLODIPine 10 MG TABLET PO SCH (09:00)
[2022-07-20] MEDS: CYANOCOBALAMIN 500 MCG TABLET PO SCH (09:28)
[2022-07-20] MEDS: PANTOPRAZOLE 40 MG VIAL IV SCH (09:28)
[2022-07-20] MEDS: ASCORBIC ACID 500 MG TABLET PO SCH (09:28)
[2022-07-20] MEDS: FOLIC ACID 1 MG TABLET PO SCH (09:28)
[2022-07-20] MEDS: ASPIRIN EC 81 MG TABLET PO SCH (09:28)
[2022-07-20] MEDS: AZITHROMYCIN INJ 500 MG in SODIUM CHLORIDE 0.9% 250 ML IV SCH (12:46)
== END 2022-07-20 13:51 | disposition home health service (06) | DRG 871 ==
LOC: SUATTDRO → N.ED 14:38 → SUATTDRO 17:06 → N.EDINP 17:06 → N.TELES 18:23 → N.ICU 07-16 08:12 → N.3E 07-18 17:20
PROVIDERS: ADMIT Hospitalist; ATTEND Internal Medicine

== ENCOUNTER 2022-08-11 10:27 | Inpatient (IN) ==
[2022-08-11] MEDS ORDERED: ASPIRIN 325 MG TABLET PO STA (10:52)
[2022-08-11] MEDS ORDERED: ENOXAPARIN 100 MG/ML SYRINGE SUBCUT STA (10:52)
[2022-08-11 11:03] LABS: Basophils % 0.7 % (0.0-0.8); Eosinophils % 0.7 % (0.00-10.9); Hemoglobin 8.2 GM/DL (12.0-16.0); Immature Granulocytes % 0.2 %; Immature Granulocytes Absolute 0.01 #; Lymphocytes # 0.6 10*3/uL (1.4-4.0); Lymphocytes % 14.2 % (21.3-54.2); Mean Corpuscular HGB Conc 31.5 GM/DL (32-36); Mean Corpuscular Volume 91.9 FL (87-102); Mean Platelet Volume 10.1 FL (9.6-12.0); Monocytes # 0.4 10*3/uL (0.11-0.8); Monocytes % 9.6 % (1.7-12.7); Neutrophils % 74.6 % (38.7-73.9); Platelet Count 223 T/CUMM (130-400); Red Blood Count 2.83 MC/CUMM (3.8-5.5); Red Cell Distribution Width 17.2 % (9.3-17.3); White Blood Count 4.4 T/CUMM (4-12)
[2022-08-11 11:24] LABS: Albumin 2.9 G/DL (3.4-5.0); Bilirubin,Total 0.5 MG/DL (0.20-1.00); Calcium 8.3 MG/DL (8.5-10.1); Osmolality,Calculated 294.8 MOS/KG (273-304); Potassium 3.2 MMOL/L (3.5-5.1); Total Protein 6.7 G/DL (6.4-8.2)
[2022-08-11] MEDS ORDERED: diphenhydrAMINE CAP 25 MG CAPSULE PO PRN (12:10)
[2022-08-11] MEDS ORDERED: NICOTINE 21 MG/24 HR PATCH TRANSDERM PRN (12:10)
[2022-08-11] MEDS ORDERED: ZALEPLON 5 MG CAPSULE PO PRN (12:10)
[2022-08-11] MEDS ORDERED: ACETAMINOPHEN 325 MG TABLET PO PRN (12:10)
[2022-08-11] MEDS ORDERED: GLUCAGON 1 MG VIAL IM PRN (12:10)
[2022-08-11] MEDS ORDERED: hydrALAZINE 20 MG/1 ML VIAL IV PRN (12:10)
[2022-08-11] MEDS ORDERED: guaiFENesin/DM ER 600-30 MG TABLET PO PRN (12:10)
[2022-08-11] MEDS ORDERED: DEXTROSE 10% 250 ML BAG IV PRN (12:28)
[2022-08-11] MEDS: ALBUTEROL/IPRATROPIUM 3 ML NEB RESP TX SCH ×2 (13:08→19:44)
[2022-08-11] MEDS ORDERED: POTASSIUM CHLORIDE 20 MEQ TABLET PO ONE (15:43)
[2022-08-11] MEDS: METOPROLOL TARTRATE 25 MG TABLET PO SCH ×2 (16:09→20:44)
[2022-08-11] MEDS: INSULIN LISPRO 100 UNIT/ML SUBCUT SCH ×2 (17:22→20:45)
[2022-08-11] MEDS ORDERED: EPOETIN ALFA-EPBX 4,000 UNIT/ML VIAL IV PRN (17:36)
[2022-08-11] MEDS: DOCUSATE SODIUM 100 MG CAPSULE PO SCH (20:44)
[2022-08-11] MEDS: ATORVASTATIN 80 MG TABLET PO SCH (20:44)
[2022-08-11] MEDS: FOLIC ACID 1 MG TABLET PO SCH (20:44)
[2022-08-11] MEDS: SERTRALINE 25 MG TABLET PO SCH (20:44)
[2022-08-11] MEDS: ASCORBIC ACID 500 MG TABLET PO SCH (20:45)
[2022-08-12] MEDS: ALBUTEROL/IPRATROPIUM 3 ML NEB RESP TX SCH ×4 (00:11→19:00)
[2022-08-12] MEDS: ONDANSETRON 4 MG/2 ML VIAL IV PRN (04:25)
[2022-08-12 05:38] LABS: Basophils % 0.5 % (0.0-0.8); Hematocrit 24.2 VOL% (35.7-47.0); Hemoglobin 7.6 GM/DL (12.0-16.0); Immature Granulocytes % 0.5 %; Immature Granulocytes Absolute 0.03 #; Lymphocytes # 0.5 10*3/uL (1.4-4.0); Lymphocytes % 8.1 % (21.3-54.2); Mean Corpuscular HGB Conc 31.4 GM/DL (32-36); Mean Corpuscular Volume 91.7 FL (87-102); Mean Platelet Volume 10.4 FL (9.6-12.0); Monocytes # 0.5 10*3/uL (0.11-0.8); Monocytes % 9.5 % (1.7-12.7); Neutrophils % 81.4 % (38.7-73.9); Platelet Count 252 T/CUMM (130-400); Red Blood Count 2.64 MC/CUMM (3.8-5.5); Red Cell Distribution Width 17.4 % (9.3-17.3); White Blood Count 5.7 T/CUMM (4-12)
[2022-08-12 05:49] LABS: Potassium 3.5 MMOL/L (3.5-5.1)
[2022-08-12 07:20] LABS: Bacteria,Urine Moderate /HPF (Few); Bilirubin,Urine Small mg/dL (Negative); Blood, Urine Trace mg/dL (Negative); Glucose,Urine (UA) Negative (Negative); Hyaline Casts,Urine 8 /LPF (0-3); Ketones,Urine Trace mg/dL (Negative); Mucus,Urine Occasional /LPF (Occasional); Nitrite,Urine Negative (Negative); Protein,Urine >=300 mg/dL (Negative); RBC,Urine 2 /HPF (0-4); Squamous Epithelial Cell,Urine Many /HPF (0-10); Urine Appearance Slightly Hazy (Clear); Urine Color Yellow (Yellow); Urine Specific Gravity 1.025 (1.001-1.035); Urine Urobilinogen 0.2 eU/dL (<2.0)
[2022-08-12 07:56] LABS: Potassium 4.1 MMOL/L (3.5-5.1)
[2022-08-12] MEDS: INSULIN LISPRO 100 UNIT/ML SUBCUT SCH ×4 (08:24→20:47)
[2022-08-12] MEDS ORDERED: HEPARIN 10,000 UNIT/10 ML VIAL IV SCH (09:30)
[2022-08-12 10:43] LABS: Hepatitis B Core IgM Quant 0.08 Index; Hepatitis B Surface Ag Quant < 0.10 Index; Hepatitis B Surface Ag Result Non-Reactive (NonReactive); Hepatitis C Virus Ab Quant 0.03 Index; Hepatitis C Virus Ab Result Non-Reactive (NonReactive)
[2022-08-12] MEDS ORDERED: SODIUM CHLORIDE 0.9% 1,000 ML IV PRN (10:50)
[2022-08-12 11:25] LABS: % Iron Saturation 19.1 % (18-50); Ferritin 1855.4 ng/mL (8-252)
[2022-08-12 11:27] LABS: Folate 16.95 NG/ML (5.38-24.0)
[2022-08-12] MEDS: FOLIC ACID 1 MG TABLET PO SCH ×2 (11:57→20:27)
[2022-08-12] MEDS: METOPROLOL TARTRATE 25 MG TABLET PO SCH ×2 (11:57→20:26)
[2022-08-12] MEDS: ASCORBIC ACID 500 MG TABLET PO SCH ×2 (11:57→20:27)
[2022-08-12] MEDS: ASPIRIN EC 81 MG TABLET PO SCH (11:57)
[2022-08-12] MEDS: DOCUSATE SODIUM 100 MG CAPSULE PO SCH ×2 (11:58→20:26)
[2022-08-12] MEDS: PANTOPRAZOLE 40 MG TABLET PO SCH (11:58)
[2022-08-12] MEDS: ISOSORBIDE MONONITRATE 30 MG TABLET PO SCH (11:58)
[2022-08-12] MEDS: amLODIPine 10 MG TABLET PO SCH (11:58)
[2022-08-12] MEDS ORDERED: PHENOL 1.4% THROAT SPRAY 177 ML BOTTLE PO PRN (13:54)
[2022-08-12] MEDS: hydrALAZINE 25 MG TABLET PO SCH ×2 (16:06→20:27)
[2022-08-12] MEDS: SERTRALINE 25 MG TABLET PO SCH (20:26)
[2022-08-12] MEDS: MENTHOL/ZINC OXIDE OINT 71 GM JAR TOP SCH (20:26)
[2022-08-12] MEDS: ATORVASTATIN 80 MG TABLET PO SCH (20:27)
[2022-08-13] MEDS: ALBUTEROL/IPRATROPIUM 3 ML NEB RESP TX SCH ×4 (00:14→19:10)
[2022-08-13 05:01] LABS: Basophils % 0.2 % (0.0-0.8); Eosinophils % 0.5 % (0.00-10.9); Hematocrit 24.5 VOL% (35.7-47.0); Immature Granulocytes % 0.7 %; Immature Granulocytes Absolute 0.03 #; Lymphocytes # 0.7 10*3/uL (1.4-4.0); Lymphocytes % 16.9 % (21.3-54.2); Mean Corpuscular HGB Conc 32.7 GM/DL (32-36); Mean Corpuscular Volume 91.1 FL (87-102); Mean Platelet Volume 10.2 FL (9.6-12.0); Monocytes # 0.6 10*3/uL (0.11-0.8); Monocytes % 12.8 % (1.7-12.7); Neutrophils % 68.9 % (38.7-73.9); Platelet Count 182 T/CUMM (130-400); Red Blood Count 2.69 MC/CUMM (3.8-5.5); Red Cell Distribution Width 16.7 % (9.3-17.3); White Blood Count 4.4 T/CUMM (4-12)
[2022-08-13 05:20] LABS: Calcium 8.3 MG/DL (8.5-10.1); Osmolality,Calculated 282.5 MOS/KG (273-304); Potassium 3.5 MMOL/L (3.5-5.1)
[2022-08-13] MEDS: INSULIN LISPRO 100 UNIT/ML SUBCUT SCH ×4 (09:37→21:24)
[2022-08-13] MEDS: MENTHOL/ZINC OXIDE OINT 71 GM JAR TOP SCH ×2 (09:48→21:29)
[2022-08-13] MEDS: amLODIPine 10 MG TABLET PO SCH (09:48)
[2022-08-13] MEDS: DOCUSATE SODIUM 100 MG CAPSULE PO SCH ×2 (09:48→21:29)
[2022-08-13] MEDS: ASPIRIN EC 81 MG TABLET PO SCH (09:48)
[2022-08-13] MEDS: PANTOPRAZOLE 40 MG TABLET PO SCH (09:48)
[2022-08-13] MEDS: FOLIC ACID 1 MG TABLET PO SCH ×2 (09:48→21:29)
[2022-08-13] MEDS: METOPROLOL TARTRATE 25 MG TABLET PO SCH ×2 (09:48→21:29)
[2022-08-13] MEDS: ISOSORBIDE MONONITRATE 30 MG TABLET PO SCH (09:48)
[2022-08-13] MEDS: ASCORBIC ACID 500 MG TABLET PO SCH ×2 (09:48→21:29)
[2022-08-13] MEDS: hydrALAZINE 25 MG TABLET PO SCH ×3 (09:48→21:29)
[2022-08-13] MEDS: cefTRIAXone 1,000 MG in SODIUM CHLORIDE 0.9% 100 ML IV SCH (12:02)
[2022-08-13] MEDS: SERTRALINE 25 MG TABLET PO SCH (21:29)
[2022-08-13] MEDS: ATORVASTATIN 80 MG TABLET PO SCH (21:29)
[2022-08-14] MEDS: ALBUTEROL/IPRATROPIUM 3 ML NEB RESP TX SCH ×4 (00:15→19:22)
[2022-08-14 05:33] LABS: Basophils % 0.4 % (0.0-0.8); Eosinophils % 0.8 % (0.00-10.9); Hematocrit 23.5 VOL% (35.7-47.0); Hemoglobin 7.4 GM/DL (12.0-16.0); Immature Granulocytes % 0.6 %; Immature Granulocytes Absolute 0.03 #; Lymphocytes # 0.6 10*3/uL (1.4-4.0); Mean Corpuscular HGB Conc 31.5 GM/DL (32-36); Mean Corpuscular Volume 91.4 FL (87-102); Mean Platelet Volume 10.4 FL (9.6-12.0); Monocytes # 0.7 10*3/uL (0.11-0.8); Monocytes % 13.2 % (1.7-12.7); Platelet Count 175 T/CUMM (130-400); Red Blood Count 2.57 MC/CUMM (3.8-5.5); White Blood Count 4.9 T/CUMM (4-12)
[2022-08-14 05:49] LABS: Alanine Aminotransferase 39 U/L (13-56); Albumin 2.7 G/DL (3.4-5.0); Alkaline Phosphatase 78 U/L (45-117); Aspartate Amino Transferase 27 U/L (0-37); Bilirubin,Total < 0.39 MG/DL (0.20-1.00); Blood Urea Nitrogen 40 MG/DL (7-18); Calcium 8.3 MG/DL (8.5-10.1); Carbon Dioxide 26 MMOL/L (21-32); Chloride 107 MMOL/L (98-107); Glucose 100 MG/DL (74-106); Osmolality,Calculated 292.1 MOS/KG (273-304); Potassium 3.2 MMOL/L (3.5-5.1); Sodium 142 MMOL/L (136-145)
[2022-08-14] MEDS ORDERED: POTASSIUM CHLORIDE 20 MEQ TABLET PO ONE (06:46)
[2022-08-14] MEDS: INSULIN LISPRO 100 UNIT/ML SUBCUT SCH ×4 (07:48→22:04)
[2022-08-14] MEDS: DOCUSATE SODIUM 100 MG CAPSULE PO SCH ×2 (08:08→20:29)
[2022-08-14] MEDS: ASCORBIC ACID 500 MG TABLET PO SCH ×2 (08:08→20:29)
[2022-08-14] MEDS: ISOSORBIDE MONONITRATE 30 MG TABLET PO SCH (08:08)
[2022-08-14] MEDS: ASPIRIN EC 81 MG TABLET PO SCH (08:09)
[2022-08-14] MEDS: hydrALAZINE 25 MG TABLET PO SCH ×3 (08:09→20:29)
[2022-08-14] MEDS: PANTOPRAZOLE 40 MG TABLET PO SCH (08:09)
[2022-08-14] MEDS: FOLIC ACID 1 MG TABLET PO SCH ×2 (08:09→20:29)
[2022-08-14] MEDS: amLODIPine 10 MG TABLET PO SCH (08:09)
[2022-08-14] MEDS: METOPROLOL TARTRATE 25 MG TABLET PO SCH (08:09)
[2022-08-14] MEDS: MENTHOL/ZINC OXIDE OINT 71 GM JAR TOP SCH ×2 (08:16→20:29)
[2022-08-14] MEDS: ONDANSETRON 4 MG/2 ML VIAL IV PRN ×2 (08:19→14:13)
[2022-08-14] MEDS ORDERED: SODIUM CHLORIDE 0.9% 1,000 ML IV PRN (09:21)
[2022-08-14] MEDS: cefTRIAXone 1,000 MG in SODIUM CHLORIDE 0.9% 100 ML IV SCH ×2 (13:18→14:04)
[2022-08-14] MEDS ORDERED: METOPROLOL TARTRATE 5 MG/5 ML VIAL IV ONE (14:38)
[2022-08-14] MEDS ORDERED: PROMETHAZINE 25 MG/1 ML VIAL IM ONE (14:43)
[2022-08-14 15:00] LABS: Basophils % 0.7 % (0.0-0.8); Eosinophils % 0.9 % (0.00-10.9); Hematocrit 29.7 VOL% (35.7-47.0); Hemoglobin 9.6 GM/DL (12.0-16.0); Immature Granulocytes % 0.7 %; Immature Granulocytes Absolute 0.03 #; Lymphocytes # 0.8 10*3/uL (1.4-4.0); Lymphocytes % 16.6 % (21.3-54.2); Mean Corpuscular HGB Conc 32.3 GM/DL (32-36); Mean Platelet Volume 10.1 FL (9.6-12.0); Monocytes # 0.6 10*3/uL (0.11-0.8); Monocytes % 12.6 % (1.7-12.7); Neutrophils % 68.5 % (38.7-73.9); Platelet Count 180 T/CUMM (130-400); Red Cell Distribution Width 18.3 % (9.3-17.3); White Blood Count 4.5 T/CUMM (4-12)
[2022-08-14 15:38] LABS: Calcium 8.1 MG/DL (8.5-10.1); Osmolality,Calculated 282.3 MOS/KG (273-304); Potassium 3.2 MMOL/L (3.5-5.1)
[2022-08-14] MEDS: CIPROFLOXACIN INJ 400 MG/200 ML PREMIX IV SCH (15:51)
[2022-08-14] MEDS: METOPROLOL TARTRATE 50 MG TABLET PO SCH (20:29)
[2022-08-14] MEDS: ATORVASTATIN 80 MG TABLET PO SCH (20:29)
[2022-08-14] MEDS: SERTRALINE 25 MG TABLET PO SCH (20:29)
[2022-08-15] MEDS: ALBUTEROL/IPRATROPIUM 3 ML NEB RESP TX SCH ×4 (01:28→18:55)
[2022-08-15 05:15] LABS: Basophils % 0.5 % (0.0-0.8); Eosinophils # 0.1 10*3/uL (0.0-0.87); Eosinophils % 0.8 % (0.00-10.9); Hematocrit 28.3 VOL% (35.7-47.0); Hemoglobin 9.4 GM/DL (12.0-16.0); Immature Granulocytes % 0.2 %; Immature Granulocytes Absolute 0.01 #; Lymphocytes # 0.6 10*3/uL (1.4-4.0); Lymphocytes % 9.9 % (21.3-54.2); Mean Corpuscular HGB Conc 33.2 GM/DL (32-36); Mean Corpuscular Volume 89.8 FL (87-102); Monocytes # 0.7 10*3/uL (0.11-0.8); Monocytes % 11.5 % (1.7-12.7); Neutrophils % 77.1 % (38.7-73.9); Platelet Count 195 T/CUMM (130-400); Red Blood Count 3.15 MC/CUMM (3.8-5.5); Red Cell Distribution Width 18.8 % (9.3-17.3)
[2022-08-15 05:33] LABS: Calcium 8.7 MG/DL (8.5-10.1); Osmolality,Calculated 279.5 MOS/KG (273-304); Potassium 3.4 MMOL/L (3.5-5.1)
[2022-08-15] MEDS: MORPHINE 2 MG/1 ML SYRINGE IV PRN ×2 (05:37→11:58)
[2022-08-15] MEDS ORDERED: POTASSIUM CHLORIDE 20 MEQ TABLET PO ONE (07:02)
[2022-08-15] MEDS: INSULIN LISPRO 100 UNIT/ML SUBCUT SCH ×4 (08:06→20:15)
[2022-08-15] MEDS: ONDANSETRON 4 MG/2 ML VIAL IV PRN (08:07)
[2022-08-15] MEDS ORDERED: POLYETHYLENE GLYCOL POWDER 17 GM PACK PO PRN (09:50)
[2022-08-15] MEDS: hydrALAZINE 25 MG TABLET PO SCH ×3 (10:39→20:15)
[2022-08-15] MEDS: ASPIRIN EC 81 MG TABLET PO SCH (10:39)
[2022-08-15] MEDS: CIPROFLOXACIN INJ 400 MG/200 ML PREMIX IV SCH (10:40)
[2022-08-15] MEDS: MENTHOL/ZINC OXIDE OINT 71 GM JAR TOP SCH ×2 (10:40→20:15)
[2022-08-15] MEDS: POLYETHYLENE GLYCOL POWDER 17 GM PACK PO SCH (10:41)
[2022-08-15] MEDS: ASCORBIC ACID 500 MG TABLET PO SCH ×2 (10:41→20:15)
[2022-08-15] MEDS: DOCUSATE SODIUM 100 MG CAPSULE PO SCH ×2 (10:41→20:15)
[2022-08-15] MEDS: PANTOPRAZOLE 40 MG TABLET PO SCH (10:41)
[2022-08-15] MEDS: FOLIC ACID 1 MG TABLET PO SCH ×2 (10:41→20:15)
[2022-08-15] MEDS: amLODIPine 10 MG TABLET PO SCH (10:41)
[2022-08-15] MEDS: METOPROLOL TARTRATE 50 MG TABLET PO SCH ×2 (10:41→20:15)
[2022-08-15] MEDS: ISOSORBIDE MONONITRATE 30 MG TABLET PO SCH (10:41)
[2022-08-15] MEDS: ATORVASTATIN 80 MG TABLET PO SCH (20:15)
[2022-08-15] MEDS: SERTRALINE 25 MG TABLET PO SCH (20:15)
[2022-08-16] MEDS: ALBUTEROL/IPRATROPIUM 3 ML NEB RESP TX SCH ×2 (00:19→06:40)
[2022-08-16] MEDS: CIPROFLOXACIN INJ 400 MG/200 ML PREMIX IV SCH (03:45)
[2022-08-16 05:03] LABS: Basophils % 0.7 % (0.0-0.8); Eosinophils # 0.1 10*3/uL (0.0-0.87); Eosinophils % 0.9 % (0.00-10.9); Hematocrit 28.6 VOL% (35.7-47.0); Hemoglobin 9.1 GM/DL (12.0-16.0); Immature Granulocytes % 0.4 %; Immature Granulocytes Absolute 0.02 #; Lymphocytes # 0.5 10*3/uL (1.4-4.0); Lymphocytes % 8.8 % (21.3-54.2); Mean Corpuscular HGB Conc 31.8 GM/DL (32-36); Mean Corpuscular Volume 91.4 FL (87-102); Mean Platelet Volume 10.2 FL (9.6-12.0); Monocytes # 0.5 10*3/uL (0.11-0.8); Monocytes % 9.5 % (1.7-12.7); Neutrophils % 79.7 % (38.7-73.9); Platelet Count 181 T/CUMM (130-400); Red Blood Count 3.13 MC/CUMM (3.8-5.5); Red Cell Distribution Width 18.6 % (9.3-17.3); White Blood Count 5.6 T/CUMM (4-12)
[2022-08-16 05:25] LABS: Albumin 2.9 G/DL (3.4-5.0); Bilirubin,Total 0.4 MG/DL (0.20-1.00); Calcium 8.4 MG/DL (8.5-10.1); Osmolality,Calculated 281.7 MOS/KG (273-304); Potassium 3.9 MMOL/L (3.5-5.1); Total Protein 6.2 G/DL (6.4-8.2)
[2022-08-16] MEDS: INSULIN LISPRO 100 UNIT/ML SUBCUT SCH (08:48)
[2022-08-16] MEDS: amLODIPine 10 MG TABLET PO SCH (08:49)
[2022-08-16] MEDS: FOLIC ACID 1 MG TABLET PO SCH (08:49)
[2022-08-16] MEDS: ISOSORBIDE MONONITRATE 30 MG TABLET PO SCH (08:49)
[2022-08-16] MEDS: hydrALAZINE 25 MG TABLET PO SCH (08:49)
[2022-08-16] MEDS: DOCUSATE SODIUM 100 MG CAPSULE PO SCH (08:49)
[2022-08-16] MEDS: METOPROLOL TARTRATE 50 MG TABLET PO SCH (08:49)
[2022-08-16] MEDS: ASPIRIN EC 81 MG TABLET PO SCH (08:49)
[2022-08-16] MEDS: PANTOPRAZOLE 40 MG TABLET PO SCH (08:49)
[2022-08-16] MEDS: ASCORBIC ACID 500 MG TABLET PO SCH (08:49)
[2022-08-16] MEDS: POLYETHYLENE GLYCOL POWDER 17 GM PACK PO SCH (08:51)
[2022-08-16] MEDS: MENTHOL/ZINC OXIDE OINT 71 GM JAR TOP SCH (09:58)
[2022-08-16 11:33] VITALS: BP 154/76
== END 2022-08-16 11:45 | disposition home health service (06) | DRG 291 ==
LOC: N.EDINP 10:27 → N.ED 10:27 → SUATTDRO 12:10 → OBSVTOIN 12:10 → N.EDINP 14:10 → N.TELES 14:14
PROVIDERS: ADMIT Internal Medicine; ATTEND Internal Medicine